=== PATIENT | male | born 1950 | race Caucasian/White ===

== ENCOUNTER 2021-03-08 12:11 | Inpatient (IN) | payer MEDICARE, OTHER ==
[~2021-03-08] VITALS: Ht 172.7 cm; Wt 55.4 kg
--- NOTE | 2021-03-08 12:18 | NUR ---
TON From [facility] ER for change in neuro status. Pt presented to [facility] with c/o abdominal pain, family reported new change in mental status. Word salad, confusion, rambling but no other neuro deficits. 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 Pt arrives to this ER with word salad, knows name will go off on tangent about why he is here, what town he is in, does not know what meds he takes or allergies. Unknown covid vaccine status. Pt walked w assist from [facility] to [facility]. VSS. IV patent from previous facility.
--- NOTE | 2021-03-08 12:23 | NUR ---
Pt GCS 14, when asked what month it is pt responds "its the next after last", was not able to tell me his last name, says he brought his her earlier today. On monitor s leatha, vss, follows commands was able to ambulate with assist from medic gurney to ER [facility]. Pt c/o feeling "hungry" feeling; to remain NPO Pt received 12mg decadron in previous ER
--- NOTE | 2021-03-08 13:24 | NUR ---
task RN: assumed care of pt on behalf of primary RN for lunch break only. pt has been resting on gurney in position of comfort. no apparent distress. pt to MRI via gurney. MRI screening form has been completed by operating room tech at bedside
--- NOTE | 2021-03-08 13:42 | NUR ---
vasc tech Alley brought pt back and reports pt was in MRI for 1 min and began "flopping like a fish and climbed out of the tube", he attempted redirection which was unsuccessful and aborted procedure.
--- NOTE | 2021-03-08 14:00 | NUR ---
Pt found wandering in room, confused redirectable back to bed or sitting. VSS. Requsted sitter for this pt from [facility].
--- NOTE | 2021-03-08 14:50 | NUR ---
REPORT TO FLOOR, PT TX WITH BELONGINGS
[2021-03-08] MEDS: DEXAMETHASONE 4 MG/ML, 1ML IVPush SCH ×2 (16:14→22:05)
[2021-03-08] MEDS ORDERED: ACET500T76 PO (17:16)
[2021-03-08] MEDS ORDERED: LORA2VIA6 PO (17:21)
[2021-03-08] MEDS ORDERED: THYR15TA PO (17:21)
[2021-03-08 20:19] VITALS: BP 120/71
[2021-03-08] MEDS: MELATONIN 5 MG TABLET PO PRN (22:06)
[2021-03-09] MEDS: LORazepam 0.5MG TABLET PO PRN (00:07)
[2021-03-09 00:14] VITALS: BP 118/69
[2021-03-09] MEDS: DEXAMETHASONE 4 MG/ML, 1ML IVPush SCH ×4 (04:36→21:28)
[2021-03-09 06:23] VITALS: BP 136/83
[2021-03-09] MEDS: LEVETIRACETAM 500 MG in SODIUM CHLORIDE 0.9% 100 ML IV SCH ×2 (08:18→19:41)
[2021-03-09] MEDS: SENNA/DOCUSATE TABLET PO SCH (09:00)
[2021-03-09] MEDS: THYROID 30 MG TABLET PO SCH (09:00)
[2021-03-09] MEDS ORDERED: GADOTERATE 7.5 MMOL/15ML SYR ONE (12:08)
[2021-03-09] MEDS ORDERED: MIDAZOLAM 1 MG/ML, 5ML ONE (12:17)
[2021-03-09] MEDS ORDERED: FENTANYL PF 100 MCG/2ML ONE (12:17)
[2021-03-09 13:44] VITALS: BP 118/71
[2021-03-09] MEDS ORDERED: OMNIPAQUE 350 MG/ML, 100ML BOTTLE ONE (14:55)
[2021-03-09 19:41] VITALS: BP 113/65
[2021-03-09] MEDS: ONDANSETRON 2MG/ML, 2ML IVPush PRN (20:02)
[2021-03-09] MEDS: LORazepam 1MG TABLET PO SCH (21:28)
[2021-03-10] MEDS: DEXAMETHASONE 4 MG/ML, 1ML IVPush SCH ×4 (04:43→21:54)
[2021-03-10 04:45] VITALS: BP 113/61
[2021-03-10 05:12] LABS: BASOPHILS % (AUTO) 0 % (0-1); EOSINOPHILS % (AUTO) 0 % (1-7); LYMPHOCYTES % (AUTO) 3 % (22-44); MEAN CORPUSCULAR HEMOGLOBIN 32.6 pg (27.5-34.5); MEAN CORPUSCULAR HGB CONC 33.9 g/dL (33.2-36.2); MONOCYTES % (AUTO) 3 % (2-9); NEUTROPHILS % (AUTO) 94 % (42-75); PLATELET COUNT 222 x10^3/uL (130-400); RED BLOOD COUNT 4.29 x10^6/uL (4.38-5.82); RED CELL DISTRIBUTION WIDTH 12.6 % (9.4-14.8)
[2021-03-10 05:43] LABS: ANION GAP 7 mmol/L (5-15); CALCIUM 9.1 mg/dL (8.5-10.1); CHLORIDE 100 mmol/L (98-107); CREATININE 0.92 mg/dL (0.7-1.3)
[2021-03-10] MEDS: THYROID 30 MG TABLET PO SCH (06:29)
[2021-03-10 07:26] VITALS: BP 107/67
[2021-03-10] MEDS: LEVETIRACETAM 500 MG in SODIUM CHLORIDE 0.9% 100 ML IV SCH ×2 (07:39→20:08)
[2021-03-10] MEDS: SENNA/DOCUSATE TABLET PO SCH (09:15)
[2021-03-10] MEDS: LORazepam 1MG TABLET PO SCH (09:15)
[2021-03-10 12:56] VITALS: BP 100/62
[2021-03-10] MEDS: CALCIUM CARBONATE 500 MG TAB.CHEW PO PRN (14:36)
[2021-03-10] MEDS: ONDANSETRON 2MG/ML, 2ML IVPush PRN (17:29)
[2021-03-10 18:45] VITALS: BP 111/71
[2021-03-11] MEDS: ONDANSETRON 2MG/ML, 2ML IVPush PRN (01:39)
[2021-03-11] MEDS: DEXAMETHASONE 4 MG/ML, 1ML IVPush SCH ×4 (04:14→21:13)
[2021-03-11 05:20] VITALS: BP 115/70
[2021-03-11] MEDS: THYROID 30 MG TABLET PO SCH (05:22)
[2021-03-11 07:07] VITALS: BP 113/66
[2021-03-11] MEDS: SENNA/DOCUSATE TABLET PO SCH (08:33)
[2021-03-11] MEDS: LEVETIRACETAM 500 MG in SODIUM CHLORIDE 0.9% 100 ML IV SCH ×2 (08:33→21:12)
[2021-03-11 12:19] VITALS: BP 111/67
[2021-03-11] MEDS ORDERED: LORazepam 2 MG/ML, 1ML IVPush PRN (15:00)
[2021-03-11 18:32] VITALS: BP 107/63
[2021-03-11] MEDS: LORazepam 1MG TABLET PO SCH (21:13)
[2021-03-11] MEDS: CALCIUM CARBONATE 500 MG TAB.CHEW PO PRN (21:22)
[2021-03-12] MEDS: CALCIUM CARBONATE 500 MG TAB.CHEW PO PRN ×2 (03:03→20:47)
[2021-03-12 03:08] VITALS: BP 129/69
[2021-03-12] MEDS: DEXAMETHASONE 4 MG/ML, 1ML IVPush SCH ×2 (04:51→08:58)
[2021-03-12] MEDS: THYROID 30 MG TABLET PO SCH (04:53)
[2021-03-12] MEDS: LEVETIRACETAM 500 MG in SODIUM CHLORIDE 0.9% 100 ML IV SCH (07:44)
[2021-03-12 08:28] VITALS: BP 100/63
[2021-03-12] MEDS: SENNA/DOCUSATE TABLET PO SCH (08:58)
[2021-03-12] MEDS ORDERED: ONDANSETRON ODT 4 MG ONE (12:08)
[2021-03-12] MEDS: ONDANSETRON 2MG/ML, 2ML IVPush PRN (12:09)
[2021-03-12 15:14] VITALS: BP 124/70
[2021-03-12] MEDS: DEXAMETHASONE 4 MG TABLET PO SCH ×2 (16:33→20:47)
[2021-03-12 20:20] VITALS: BP 142/73
[2021-03-12] MEDS: LORazepam 1MG TABLET PO SCH (20:47)
[2021-03-12] MEDS: LEVETIRACETAM 500 MG TABLET PO SCH (20:47)
[2021-03-13 02:46] VITALS: BP 117/71
[2021-03-13] MEDS: ACETAMINOPHEN 500 MG TABLET PO SCH ×6 (02:51→21:56)
[2021-03-13] MEDS: DEXAMETHASONE 4 MG TABLET PO SCH ×4 (02:51→19:53)
[2021-03-13] MEDS ORDERED: KETOROLAC 30 MG/1 ML IVPush PRN (03:00)
[2021-03-13] MEDS ORDERED: ACETAMINOPHEN 500 MG TABLET PO PRN (03:00)
[2021-03-13] MEDS: THYROID 30 MG TABLET PO SCH (06:32)
[2021-03-13 06:52] VITALS: BP 127/71
[2021-03-13] MEDS: LEVETIRACETAM 500 MG TABLET PO SCH ×2 (08:58→19:53)
[2021-03-13] MEDS: SENNA/DOCUSATE TABLET PO SCH (09:00)
[2021-03-13] MEDS ORDERED: MORPHINE SULFATE 4 MG/ML, 1ML IVPush PRN (09:00)
[2021-03-13] MEDS: CALCIUM CARBONATE 500 MG TAB.CHEW PO PRN ×2 (11:39→15:46)
[2021-03-13 12:58] VITALS: BP 113/70
[2021-03-13] MEDS: POLYETHYLENE GLYCOL 17 GM PACKET PO PRN (17:17)
[2021-03-13 18:11] VITALS: BP 124/71
[2021-03-13] MEDS: LORazepam 1MG TABLET PO SCH (19:53)
[2021-03-13] MEDS: MELATONIN 5 MG TABLET PO PRN (19:53)
[2021-03-13 23:58] VITALS: BP 121/73
[2021-03-14 02:39] VITALS: BP 104/63
[2021-03-14] MEDS: DEXAMETHASONE 4 MG TABLET PO SCH ×4 (02:41→20:16)
[2021-03-14] MEDS: ACETAMINOPHEN 500 MG TABLET PO SCH ×6 (03:00→23:30)
[2021-03-14] MEDS: THYROID 30 MG TABLET PO SCH (06:32)
[2021-03-14 06:44] VITALS: BP 100/63
[2021-03-14] MEDS: SENNA/DOCUSATE TABLET PO SCH (09:18)
[2021-03-14] MEDS: LEVETIRACETAM 500 MG TABLET PO SCH ×2 (09:19→20:15)
[2021-03-14 14:59] VITALS: BP 117/71
[2021-03-14 19:31] VITALS: BP 116/66
[2021-03-14] MEDS: LORazepam 1MG TABLET PO SCH (20:16)
[2021-03-15 01:12] VITALS: BP 118/71
[2021-03-15] MEDS: ACETAMINOPHEN 500 MG TABLET PO SCH ×6 (02:49→23:30)
[2021-03-15] MEDS: DEXAMETHASONE 4 MG TABLET PO SCH ×4 (02:49→21:37)
[2021-03-15] MEDS: THYROID 30 MG TABLET PO SCH (06:12)
[2021-03-15 07:13] VITALS: BP 139/81
[2021-03-15] MEDS: SENNA/DOCUSATE TABLET PO SCH (08:07)
[2021-03-15] MEDS: LEVETIRACETAM 500 MG TABLET PO SCH ×2 (08:07→21:37)
[2021-03-15] MEDS: LORazepam 0.5MG TABLET PO PRN (11:46)
[2021-03-15 12:59] VITALS: BP 120/67
[2021-03-15 19:22] VITALS: BP 124/75
[2021-03-15] MEDS: LORazepam 1MG TABLET PO SCH (21:37)
[2021-03-16 03:58] VITALS: BP 117/68
[2021-03-16] MEDS: ACETAMINOPHEN 500 MG TABLET PO SCH ×4 (06:19→21:30)
[2021-03-16] MEDS: THYROID 30 MG TABLET PO SCH (06:19)
[2021-03-16] MEDS: DEXAMETHASONE 4 MG TABLET PO SCH ×4 (06:19→21:30)
[2021-03-16 08:40] VITALS: BP 122/72
[2021-03-16] MEDS: SENNA/DOCUSATE TABLET PO SCH (09:20)
[2021-03-16] MEDS: LEVETIRACETAM 500 MG TABLET PO SCH ×2 (09:21→21:30)
[2021-03-16] MEDS: CALCIUM CARBONATE 500 MG TAB.CHEW PO PRN ×2 (12:57→16:53)
[2021-03-16 14:10] VITALS: BP 125/70
[2021-03-16 18:48] VITALS: BP 115/73
[2021-03-16] MEDS: LORazepam 1MG TABLET PO SCH (21:30)
[2021-03-17 03:57] VITALS: BP 111/66
[2021-03-17] MEDS: ACETAMINOPHEN 500 MG TABLET PO SCH ×8 (04:12→20:20)
[2021-03-17] MEDS: DEXAMETHASONE 4 MG TABLET PO SCH ×3 (04:12→16:50)
[2021-03-17] MEDS: THYROID 30 MG TABLET PO SCH (06:25)
[2021-03-17 06:33] VITALS: BP 128/69
[2021-03-17] MEDS: SENNA/DOCUSATE TABLET PO SCH (08:17)
[2021-03-17] MEDS: LEVETIRACETAM 500 MG TABLET PO SCH ×2 (08:17→20:18)
[2021-03-17 12:41] VITALS: BP 135/76
[2021-03-17] MEDS: POLYETHYLENE GLYCOL 17 GM PACKET PO PRN (13:31)
[2021-03-17] MEDS: CALCIUM CARBONATE 500 MG TAB.CHEW PO PRN (16:50)
[2021-03-17 18:42] VITALS: BP 120/73
[2021-03-17] MEDS: MELATONIN 5 MG TABLET PO PRN (20:18)
[2021-03-17] MEDS: LORazepam 1MG TABLET PO SCH (20:18)
[2021-03-18 00:18] VITALS: BP 121/63
[2021-03-18] MEDS: DEXAMETHASONE 4 MG TABLET PO SCH ×3 (00:18→17:01)
[2021-03-18] MEDS: ACETAMINOPHEN 500 MG TABLET PO SCH ×6 (00:18→21:21)
[2021-03-18] MEDS: CALCIUM CARBONATE 500 MG TAB.CHEW PO PRN ×2 (02:10→21:21)
[2021-03-18] MEDS: THYROID 30 MG TABLET PO SCH (06:09)
[2021-03-18 06:36] VITALS: BP 120/69
[2021-03-18] MEDS: POLYETHYLENE GLYCOL 17 GM PACKET PO PRN (08:44)
[2021-03-18] MEDS: SENNA/DOCUSATE TABLET PO SCH (08:44)
[2021-03-18] MEDS: LEVETIRACETAM 500 MG TABLET PO SCH ×2 (08:44→21:21)
[2021-03-18] MEDS: POLYETHYLENE GLYCOL 17 GM PACKET PO SCH (09:54)
[2021-03-18] MEDS: BISACODYL 10 MG SUPP PR SCH (10:00)
[2021-03-18 12:36] VITALS: BP 119/65
[2021-03-18] MEDS ORDERED: MAGNESIUM HYDROXIDE 8%, 30ML UDC ONE (16:59)
[2021-03-18] MEDS: MAGNESIUM HYDROXIDE 8%, 30ML UDC PO PRN (17:01)
[2021-03-18 18:41] VITALS: BP 114/66
[2021-03-18] MEDS: LORazepam 1MG TABLET PO SCH (21:21)
[2021-03-18] MEDS: MELATONIN 5 MG TABLET PO PRN (21:21)
[2021-03-19 01:28] VITALS: BP 116/73
[2021-03-19] MEDS: DEXAMETHASONE 4 MG TABLET PO SCH ×3 (01:50→16:22)
[2021-03-19] MEDS: ACETAMINOPHEN 500 MG TABLET PO SCH ×6 (01:50→19:42)
[2021-03-19] MEDS: THYROID 30 MG TABLET PO SCH (05:31)
[2021-03-19 07:23] VITALS: BP 106/65
[2021-03-19] MEDS: POLYETHYLENE GLYCOL 17 GM PACKET PO SCH (08:41)
[2021-03-19] MEDS: SENNA/DOCUSATE TABLET PO SCH (08:41)
[2021-03-19] MEDS: MAGNESIUM HYDROXIDE 8%, 30ML UDC PO PRN (08:41)
[2021-03-19] MEDS: BISACODYL 10 MG SUPP PR SCH (08:42)
[2021-03-19] MEDS: LEVETIRACETAM 500 MG TABLET PO SCH ×2 (08:42→19:42)
[2021-03-19 12:33] VITALS: BP 113/71
[2021-03-19] MEDS ORDERED: LEVE500T53 PO (12:47)
[2021-03-19] MEDS ORDERED: DEXA4TAB66 PO (12:47)
[2021-03-19] MEDS: CALCIUM CARBONATE 500 MG TAB.CHEW PO PRN ×2 (15:20→22:31)
[2021-03-19] MEDS: LORazepam 0.5MG TABLET PO PRN ×2 (15:36→15:45)
[2021-03-19] MEDS ORDERED: HALOPERIDOL 5 MG/ML IM PRN (16:30)
[2021-03-19 19:20] VITALS: BP 109/71
[2021-03-19] MEDS: LORazepam 1MG TABLET PO SCH (19:42)
[2021-03-19] MEDS: MELATONIN 5 MG TABLET PO PRN (22:31)
[2021-03-20] MEDS: ACETAMINOPHEN 500 MG TABLET PO SCH ×3 (01:28→09:11)
[2021-03-20] MEDS: DEXAMETHASONE 4 MG TABLET PO SCH ×2 (01:28→09:11)
[2021-03-20 01:53] VITALS: BP 128/73
[2021-03-20] MEDS: POLYETHYLENE GLYCOL 17 GM PACKET PO SCH ×2 (03:29→09:11)
[2021-03-20] MEDS: THYROID 30 MG TABLET PO SCH (05:14)
[2021-03-20] MEDS: BISACODYL 10 MG SUPP PR SCH (05:14)
[2021-03-20 06:45] VITALS: BP 93/57
[2021-03-20] MEDS: LEVETIRACETAM 500 MG TABLET PO SCH (09:11)
[2021-03-20] MEDS: SENNA/DOCUSATE TABLET PO SCH (09:11)
== END 2021-03-20 11:20 | disposition hospice, inpatient (51) | DRG 54 ==
LOC: ED 12:45 → 4NW 12:46 → ED 12:59 → SUATTDRO 13:18
PROVIDERS: ADMIT Internal Medicine; ATTEND Hospitalist
DX: C71.9 Malignant neoplasm of brain, unspecified (principal); G93.41 Metabolic encephalopathy; E03.9 Hypothyroidism, unspecified; F41.9 Anxiety disorder, unspecified; R47.02 Dysphasia; Z51.5 Encounter for palliative care; Z66 Do not resuscitate; Z20.822 Contact with and (suspected) exposure to COVID-19
CPT/HCPCS: 36415; 70553; 71260; 74177; 80048; 85025; 86480; 87635; 99285; G0378; J1100; J1885; J1953; J2250; J2405; J3010; Q9967; 92523-GN; A9575; J1630